=== PATIENT | male | born 1970 | race Caucasian/White ===

== ENCOUNTER → 2016-07-21 | Outpatient (CLI) | payer BC ==
[~2016-07-21] MED LIST: NO KNOWN MEDICATIONS
--- NOTE | 2016-07-21 15:24 | DI ---
Indication: ITS.REASON: J32.9 CHRONIC SINUSITIS PROCEDURE: CT SINUSES W/O CONTRAST: Encounter: Initial Comparison: None Technique: Axial CT images were performed through the sinuses without intravenous contrast. Coronal and sagittal two-dimensional reformats. Automated Exposure Control and Iterative Reconstruction dose reducing techniques were utilized. Findings: Mucosal thickening in both maxillary sinuses which is mild. Small air-fluid level in the left maxillary sinus. The frontal sinuses are clear. There is mucosal thickening in both frontoethmoidal recesses and anterior ethmoid air cells. Mild to moderate mucosal thickening in the middle ethmoids as well. Mild mucosal thickening in the right posterior ethmoids. Trace mucosal thickening in the sphenoid sinuses. Sphenoid ostia are occluded by mucosal thickening. The ostiomeatal units are both occluded by mucosal thickening. Leftward nasal septal deviation and spurring. Chronic appearing nasal arch fractures. Impression: Multifocal sinus disease with possible acute left maxillary sinusitis. .
== END ==
LOC: IMA 14:59
PROVIDERS: ATTEND Otolaryngology
DX: J32.4 Chronic pansinusitis (principal); J32.9 Chronic sinusitis, unspecified

== ENCOUNTER → 2016-08-23 | Outpatient (CLI) | payer BC ==
[2016-08-23 14:57] LABS: BASOPHILS # (AUTO) 0.1 T/MM3 (0-0.2); BASOPHILS % (AUTO) 0.7 % (0-2); EOSINOPHILS # (AUTO) 0.8 T/MM3 (0-0.5); EOSINOPHILS % (AUTO) 10.3 % (0-4); HCT - HEMATOCRIT 45.3 % (41-53); HGB - HEMOGLOBIN 15.7 GM/DL (13.5-17.5); IMMATURE GRANULOCYTE # (AUTO) 0.03 T/MM3 (0.00-0.03); IMMATURE GRANULOCYTE % (AUTO) 0.4 % (0.0-0.5); LYMPHOCYTES # (AUTO) 2.3 T/MM3 (1-4.8); LYMPHOCYTES % (AUTO) 30.2 % (23-45); MEAN CORPUSCULAR HGB 30.2 UUG (26-34); MEAN CORPUSCULAR HGB CONC(MCHC 34.7 GM/DL (31-37); MEAN CORPUSCULAR VOLUME 87.1 UM3 (80-100); MEAN PLATELET VOLUME 9.1 UM3 (9.4-12.4); MONOCYTES # (AUTO) 0.4 T/MM3 (0-0.8); MONOCYTES % (AUTO) 5.6 % (0-9.0); NEUTROPHILS #(AUTO)-ABSOLUTE 4.1 T/MM3 (1.8-7.7); NEUTROPHILS % (AUTO) 52.8 % (33-66); WBC - WHITE BLOOD COUNT 7.7 T/MM3 (4.5-11.0)
== END ==
LOC: LAB 14:20
PROVIDERS: ATTEND Otolaryngology
DX: Z01.818 Encounter for other preprocedural examination (principal)
CPT/HCPCS: 36415; 85025; 93005